=== PATIENT | male | born 1950 | race Hispanic/Latino ===

== ENCOUNTER → 2018-12-12 | Day surgery (SDC) | payer OTHER ==
[2018-12-09 13:25] LABS: BASOPHILS # (AUTO) 0.1 (0.0-0.1); BASOPHILS % 1.3 % (0.0-1.0); EOSINOPHILS # (AUTO) 0.2 (0.0-0.4); EOSINOPHILS % 3.4 % (0.0-6.0); HEMATOCRIT 44.4 % (38.2-49.6); HEMOGLOBIN 14.8 g/dL (14.0-18.0); LYMPHOCYTES # (AUTO) 2.7 (1.0-3.2); LYMPHOCYTES % 39.9 % (18.0-39.1); MEAN CORPUSCULAR HEMOGLOBIN 30.1 pg (28-32); MEAN CORPUSCULAR HGB CONC 33.3 g/dL (31-35); MEAN CORPUSCULAR VOLUME 90.2 fL (81-99); MONOCYTES # (AUTO) 0.6 (0.2-0.8); MONOCYTES % 8.7 % (4.4-11.3); NEUTROPHILS # (AUTO) 3.1 (2.1-6.9); NEUTROPHILS % 46.6 % (38.7-80.0); PLATELET COUNT 230 x10e3/uL (140-360); RED BLOOD COUNT 4.92 x10e6/uL (4.3-5.7); RED CELL DISTRIBUTION WIDTH 13.2 % (11.7-14.4)
--- NOTE | 2018-12-09 13:25 | Diagnostic Imaging Report ---
EXAMINATION: PA and lateral views of the chest. COMPARISON: None CLINICAL HISTORY: Preadmission protocol, carpal tunnel surgery DISCUSSION: Lines/tubes: None. Lungs: The lungs are well inflated and clear. No pneumonia or pulmonary edema. Pleura: No pleural effusion or pneumothorax. Heart and mediastinum: The cardiomediastinal silhouette is normal. Bones and soft tissues: No acute bony abnormalities. IMPRESSION: No acute cardiopulmonary abnormalities. Signed by: Dr. Brent Cornelius M.D. on 12/09/2018 1:21 PM
[2018-12-09 16:54] LABS: ANION GAP 17.5 mmol/L (8-16); BLOOD UREA NITROGEN 15 mg/dL (7-26); BUN/CREATININE RATIO 15 (6-25); CALCIUM 9.3 mg/dL (8.4-10.2); CARBON DIOXIDE 23 mmol/L (22-29); CHLORIDE 103 mmol/L (98-107); CREATININE, SERUM 1.01 mg/dL (0.72-1.25); EST GLOMERULAR FILTRATION RATE > 60 ML/MIN (60-); GLUCOSE 88 mg/dL (74-118); POTASSIUM 3.5 mmol/L (3.5-5.1); SODIUM 140 mmol/L (136-145)
[~2018-12-12] MED LIST: ASPIR 8181 MG PO; CLINDAMYCIN 600MG / 50ML 50 ML IV ONE; DEXAMETHASONE SOD PHOS INJ 4 MG/ML VIAL ONE; DIOVAN HCT 1601 EAC1; DIOVAN HCT 3201 EAC1 PO; FENTANYL CITRATE/PF 100MCG/2 ML INJ ONE; KETOROLAC TROMETHAMINE 30 MG/ML VIAL ONE; LEVOTHYROXINE50 MCG PO; LIDOCAINE HCL 2% LOCAL INJ 5 ML SDV VIAL INJ ONE; LORTAB 7.5-5001 EACH PO; MIDAZOLAM HCL 2 MG/2 ML VIAL ONE; ONDANSETRON HCL INJ 2MG/ML 2ML 2 MG/ML VIAL ONE; PLAVIX75 MG PO; PROPOFOL IV EMULSION 10 MG/ML 20 ML VIAL ONE; SEVOFLURANE INHAL SOLN 250 ML PEN BTL ONE; SIMVASTATIN20 MG PO; VYTORIN 10-401 EACH
--- OUTSIDE RECORDS SUMMARY | 2018-12-12 06:34 | XMS REPORT ---
Author Organization Unknown Address [address] [place] [address] Phone [phone] Care Team Providers Care Plant Culture Manager Name Role Phone Modesto Garcia Unavailable Unavailable Allergies Code Code System Name Reaction Severity Status Onset NKDA Medications Name Status Start Date Stop Date allopurinol 100 mg tablet Completed 02/08/2017 levothyroxine 50 mcg tablet Take 1 tablet every day by oral route for 90 days. Active Not available naproxen 500 mg tablet Completed 02/08/2017 simvastatin 20 mg tablet Take 1 tablet every day by oral route for 90 days. Active Not available simvastatin 40 mg tablet Completed 02/08/2017 valsartan 160 mg-hydrochlorothiazide 25 mg tablet Take 1 tablet every day by oral route for 90 days. Active Not available Zetia 10 mg tablet Completed 02/08/2017 Problems Name Status Onset Date Source Hypothyroidism Active 01/20/2016 History Pure Hypercholesterolemia Active 01/20/2016 History Hypertensive Heart Disease Active 01/20/2016 History Procedures Notes: 04/20/2016: S/P Cholecystecteomy; Surgery Date: 2002 S/P Lumbar Laminectomy; Surgery Date: 2011 Lab Results Date Name Specimen Result Interpretation Description Value Range Status Address 08/23/2017 CBC W/ Auto Diff Wbc 5.77 x10*3/L 4.23-9.07 x10*3/L Final [facility] Laboratory: [address] Rbc 4.81 10*12/L 4.63-6.08 10*12/L Final [facility] Laboratory: [address] Hemoglobin 14.70 g/dL 13.70-17.50 g/dL Final [facility] Laboratory: [address] Hematocrit 43.8 % 40.1-51.0 % Final [facility] Laboratory: [address] Mcv 91.1 fL 80.0-100.0 fL Final [facility] Laboratory: [address] Mch 30.6 pg 25.7-32.2 pg Final [facility] Laboratory: [address] [place] Mchc 33.6 g/dL 32.3-36.5 g/dL Final [facility]: [address] [place] RDW-SD 43.4 fL 35.1-43.9 fL Final [facility]: [address] [place] Platelet Count 209.0 k/uL 163.0-337.0 k/uL Final [facility] Laboratory: [address] [place] Mpv 10.8 fL 7.5-11.5 fL Final [facility]: [address] [place] Neut% 45.8 % 34.0-67.9 % Final [facility]: [address] [place] Lymph% 38.6 % 21.8-53.1 % Final [facility]: [address] [place] Mon% 10.1 % 5.3-12.2 % Final [facility]: [address] [place] Eos% 5.0 % 0.8-7.0 % Final [facility]: [address] [place] Baso% 0.5 % 0.2-1.2 % Final [facility]: [address] [place] Neut# 2.6 x10*3/L 1.8-5.4 x10*3/L Final [facility]: [address] [place] Lymph# 2.2 x10*3/L 1.3-3.6 x10*3/L Final [facility]: [address] [place] Mon# 0.6 x10*3/L 0.3-0.8 x10*3/L Final [facility]: [address] [place] Eos# 0.29 x10*3/L 0.04-0.54 x10*3/L Final [facility] [address] [facility] x10*3/L 0.01-0.08 x10*3/L Final [facility]: [address] 08/23/2017 Lipid Panel, Serum Low Hdl 32 mg/dL 40-60 mg/dL Final [facility] Laboratory: [address] Triglyceride 143 mg/dL 0-149 mg/dL Final [facility]: [address] VLDL Calc. 29 mg/dL Final [facility] Laboratory: [address] cholesterol/HDL Ratio 4.3 mg/dL Final [facility] Laboratory: [address] non-HDL Cholesterol Calc. 104 mg/dL 0-160 mg/dL Final [facility] Laboratory: [address] Cholesterol 136 mg/dL 0-199 mg/dL Final [facility]: [address] LDL Calc. 75 mg/dL 0-130 mg/dL Final [facility]: [address] 08/23/2017 T4, Total, Serum T4 Total 6.26 ug/dL 4.87-11.72 ug/dL Final [facility] Laboratory: [address] 08/23/2017 TSH, Serum or Plasma Tsh 2.218 uIU/mL 0.350-4.940 uIU/mL Final [facility] Laboratory: [address] 02/08/2017 CMP, Serum or Plasma Alt 22 U/L 0-55 U/L Final [facility] Laboratory: [address] Ast 26 U/L 5-34 U/L Final [facility]: [address] Bun 17 mg/dL 8-26 mg/dL Final [facility]: [address] Alk Phos 65 unit/L 40-150 unit/L Final [facility]: [address] Glucose 90 mg/dL 70-99 mg/dL Final [facility]: [address] Albumin 4.1 g/dL 3.5-5.0 g/dL Final [facility]: [address] Creatinine 1.03 mg/dL 0.72-1.25 mg/dL Final [facility] Laboratory: [address] [place] [address], [place] eGFR Non- >60 mL/min/1.73m2 >60 mL/min/1.73m2 Final [facility] Laboratory: [address] [place] [address], [place] Total Bilirubin 0.4 mg/dL 0.2-1.2 mg/dL Final [facility]: [address] [place] [address], [place] eGFR - >60 mL/min/1.73m2 >60 mL/min/1.73m2 Final [facility]: [address] [place] [address], [place] Sodium 139 mEq/L 137-144 mEq/L Final [facility]: [address] [place] [address], [place] Potassium 4.3 mEq/L 3.5-5.0 mEq/L Final [facility]: [address] [place] [address], [place] Chloride 102 mmol/L 101-110 mmol/L Final [facility]: [address] Total Protein 8.0 g/dL 6.4-8.3 g/dL Final [facility]: [address] Calcium 9.2 mg/dL 8.4-10.2 mg/dL Final [facility]: [address] [place] [address], [place] Co2 28.0 mmol/L 22.0-31.0 mmol/L Final [facility]: [address] Anion Gap 9 calc Final [facility]: [address] 02/08/2017 Lipid Panel, Serum Hdl 40 mg/dL 40-60 mg/dL Final [facility]: [address] High Triglyceride 193 mg/dL 0-149 mg/dL Final [facility]: [address] [place] [address], [place] VLDL Calc. 39 mg/dL Final [facility]: [address] cholesterol/HDL Ratio 4 mg/dL Final [facility] Laboratory: [address] [place] [address], [place] non-HDL Cholesterol Calc. 139 mg/dL 0-160 mg/dL Final [facility]: [address] Cholesterol 179 mg/dL 0-199 mg/dL Final [facility] Laboratory: [address] [place] [address] LDL Calc. 100 mg/dL 0-130 mg/dL Final [facility] Laboratory: [address] 02/08/2017 T4, Total, Serum T4 Total 4.93 ug/dL 4.87-11.72 ug/dL Final [facility] Laboratory: [address] [place] [address], [place] 02/08/2017 TSH, Serum or Plasma Tsh 1.943 uIU/mL 0.350-4.940 uIU/mL Final [facility] Laboratory: [address] [place] [address], [place] 02/08/2017 CBC W/ Auto Diff Normal White Blood Cell Count 7.0 thousand/uL 3.8-10.8 thousand/uL Final [facility] Lab: [address] [facility], [place] Normal Red Blood Cell Count 4.84 million/uL 4.20-5.80 million/uL Final [facility]: [address] [facility] [place] Normal Hemoglobin 14.8 g/dL 13.2-17.1 g/dL Final [facility]: [address] [facility] [place] Normal Hematocrit 43.2 % 38.5-50.0 % Final [facility] Lab: [address] [facility] [place] Normal Mcv 89.3 fL 80.0-100.0 fL Final [facility] Lab: [address], [place] Normal Mch 30.5 pg 27.0-33.0 pg Final [facility] Lab: [address] [facility] [place] Normal Mchc 34.1 g/dL 32.0-36.0 g/dL Final [facility] Lab: [address], [place] Normal Rdw 14.6 % 11.0-15.0 % Final [facility] Lab: [address], [place] Normal Platelet Count 236 thousand/uL 140-400 thousand/uL Final [facility] Lab: 70 [facility], [place] Normal Mpv 9.3 fL 7.5-12.5 fL Final [facility] Lab: [address], [place] Normal Absolute Neutrophils 3570 cells/uL 6449-3397 cells/uL Final [facility] Lab: [address], [place] Normal Absolute Lymphocytes 2520 cells/uL 850-3900 cells/uL Final [facility] Lab: [address], [place] Normal Absolute Monocytes 532 cells/uL 200-950 cells/uL Final [facility] Lab: [address], [place] Normal Absolute Eosinophils 315 cells/uL 15-500 cells/uL Final [facility] Lab: [address], [place] Normal Absolute Basophils 63 cells/uL 0-200 cells/uL Final [facility] Lab: [address], [place] Normal Neutrophils 51.0 % Final [facility] Lab: [address], [place] Normal Lymphocytes 36.0 % Final [facility] Lab: [address], [place] Normal Monocytes 7.6 % Final [facility] Lab: [address], [place] Normal Eosinophils 4.5 % Final [facility] Lab: [address], [place] Normal Basophils 0.9 % Final [facility] Lab: [address], [place] 02/08/2017 CBC W/ Auto Diff Normal White Blood Cell Count 7.0 thousand/uL 3.8-10.8 thousand/uL Final [facility]: [address] [facility] Red Blood Cell Count 4.84 million/uL 4.20-5.80 million/uL Final [facility]: [address] [facility] Hemoglobin 14.8 g/dL 13.2-17.1 g/dL Final [facility]: [address] [place] Normal Hematocrit 43.2 % 38.5-50.0 % Final [facility]: [address] [facility] Mcv 89.3 fL 80.0-100.0 fL Final [facility]: [address] [place] Normal Mch 30.5 pg 27.0-33.0 pg Final [facility] Laboratory: [address], [place] Normal Mchc 34.1 g/dL 32.0-36.0 g/dL Final [facility]: [address] [facility] Normal Rdw 14.6 % 11.0-15.0 % Final [facility]: [address] [facility] Normal Platelet Count 236 thousand/uL 140-400 thousand/uL Final [facility] Laboratory: [address] [place] Normal Mpv 9.3 fL 7.5-12.5 fL Final [facility] Laboratory: [address] [place] Normal Absolute Neutrophils 3570 cells/uL 5302-5043 cells/uL Final [facility]: [address] [place] Normal Absolute Lymphocytes 2520 cells/uL 850-3900 cells/uL Final [facility]: [address] [place] Normal Absolute Monocytes 532 cells/uL 200-950 cells/uL Final [facility] Laboratory: [address], [place] Normal Absolute Eosinophils 315 cells/uL 15-500 cells/uL Final [facility]: [address] [place] Normal Absolute Basophils 63 cells/uL 0-200 cells/uL Final [facility]: [address] [place] Normal Neutrophils 51.0 % Final [facility] Laboratory: [address], [place] Normal Lymphocytes 36.0 % Final [facility]: [address], [place] Normal Monocytes 7.6 % Final [facility]: [address] [place] Normal Eosinophils 4.5 % Final [facility] Laboratory: [address], [place] Normal Basophils 0.9 % Final [facility] Laboratory: [address], [place] Past Encounters 02/21/2018 Hypothyroidism; Pure Hypercholesterolemia; Hypertensive Heart Disease; Carpal Tunnel Syndrome Modesto Garcia MD: [id number] [facility], [address] [address], Ph. 08/23/2017 Hypertensive Heart Disease; Pure Hypercholesterolemia; Hypothyroidism; Influenza Vaccination Modesto Garcia MD: [id number] [facility], [facility] [address] [place] [address], Ph. 05/24/2017 Hypertensive Heart Disease; Pure Hypercholesterolemia; Hypothyroidism; Body Mass Index 25-29 - Overweight ALICE RamirezP: 47589 [facility], [facility] [address] [place] [address], Ph. 02/08/2017 Hypertensive Heart Disease; Pure Hypercholesterolemia; Hypothyroidism; Immunization Modesto Garcia MD: [id number] [facility], [address], [place] [address], Ph. 10/26/2016 Pure Hypercholesterolemia; Hypertensive Heart Disease; Hypothyroidism Modesto Garcia MD: [id number] [facility], [address], [place] [address], Ph. Social History Smoking Status Never Smoker Vaccine List Vaccine Type influenza, high dose seasonal 08/23/20170.5 mL influenza, injectable, quadrivalent 10/21/2015 pneumococcal conjugate PCV 13 02/08/20170.5 mL Plan of Care Reminders Provider Appointments None recorded. Lab None recorded. Referral None recorded. Procedures None recorded. Surgeries None recorded. Imaging None recorded. Vitals 02/21/2018 08:30AM Est Patient Height Weight BMI Blood Pressure 5 ft 7.5 in 189 lbs 29.2 kg/m2 131/72 mm[Hg] 08/23/2017 08:30AM Est Patient Height Weight BMI Blood Pressure 5 ft 7.5 in 187 lbs 28.9 kg/m2 124/81 mm[Hg] 05/24/2017 08:15AM Est Patient Height Weight BMI Blood Pressure 5 ft 7.5 in 182 lbs 28.1 kg/m2 123/77 mm[Hg] 02/08/2017 09:15AM Est Patient Height Weight BMI Blood Pressure 5 ft 7.5 in 184.4 lbs 28.5 kg/m2 129/77 mm[Hg] 10/26/2016 08:30AM Est Patient Height 5 ft 7.5 in 04/20/2016 Height Weight BMI Blood Pressure 5 ft 7.5 in 172.8 lbs 26.66 kg/m2 133/75 mm[Hg] 01/20/2016 Height Weight BMI Blood Pressure 5 ft 7.5 in 172.6 lbs 26.63 kg/m2 118/70 mm[Hg] 10/21/2015 Height Weight BMI Blood Pressure 5 ft 7.5 in 182.6 lbs 28.17 kg/m2 134/72 mm[Hg] 07/22/2015 Height Weight BMI Blood Pressure 5 ft 7.5 in 182 lbs 28.08 kg/m2 118/72 mm[Hg] 05/08/2015 Height Weight BMI Blood Pressure 5 ft 7.5 in 190.4 lbs 29.38 kg/m2 124/68 mm[Hg] 04/15/2015 Height Weight BMI Blood Pressure 5 ft 7.5 in 187.8 lbs 28.98 kg/m2 118/70 mm[Hg] 01/14/2015 Height Weight BMI Blood Pressure 5 ft 7.5 in 188 lbs 29.01 kg/m2 120/80 mm[Hg] 10/15/2014 Height Weight BMI Blood Pressure 5 ft 7.5 in 190 lbs 29.32 kg/m2 130/80 mm[Hg] 03/19/2014 Height Weight 5 ft 7.5 in 188.4 lbs 11/20/2013 Height Weight 5 ft 7.5 in 188.4 lbs 08/21/2013 Height Weight 5 ft 7.5 in 184.6 lbs 05/22/2013 Height Weight 5 ft 7.5 in 187.4 lbs 02/13/2013 Height Weight 5 ft 7.5 in 194.7 lbs 11/14/2012 Height Weight 5 ft 7.5 in 192.8 lbs 10/17/2012 Height Weight 5 ft 7.5 in 191.4 lbs 08/15/2012 Height Weight 5 ft 7.5 in 190.4 lbs 05/16/2012 Height Weight 5 ft 7.5 in 191.2 lbs 02/17/2012 Height Weight 5 ft 7.5 in 197 lbs 02/15/2012 Height Weight 5 ft 7.5 in 197 lbs 11/11/2011 Height Weight 5 ft 7.5 in 193.4 lbs 09/14/2011 Height Weight 5 ft 7.5 in 192.8 lbs 06/08/2011 Height Weight 5 ft 7.5 in 195.4 lbs 06/01/2011 Height Weight 5 ft 7.5 in 196.6 lbs 10/27/2010 Height Weight 5 ft 7.5 in 191.8 lbs 06/19/2010 Weight 194.4 lbs 06/02/2010 Weight 194.6 lbs 01/20/2010 Weight 188 lbs 01/13/2010 Weight 196 lbs 10/07/2009 Weight 196 lbs 07/08/2009 Weight 200 lbs 04/08/2009 Height Weight 5 ft 7.5 in 190 lbs 01/07/2009 Weight 183 lbs 12/18/2008 Weight 202 lbs 07/02/2008 Weight 191.1 lbs 01/02/2008 Weight 187.8 lbs 12/26/2007 Height Weight 5 ft 7.2 in 189.2 lbs
--- OUTSIDE RECORDS SUMMARY | 2018-12-12 06:34 | XMS REPORT ---
Author [facility] Address Unknown Phone Unavailable Care Team Providers Care Set And Exhibit Designer Name Role Phone FATIMAH PERKINS Unavailable Unavailable Problems This patient has no known problems. Allergies, Adverse Reactions, Alerts This patient has no known allergies or adverse reactions. Medications This patient has no known medications. Results Test Description Test Time Test Comments Text Results Atomic Results Result Comments CHEST 2 VIEWS 2018-12-09 13:20:00 [place] [address] Patient Name: PRINCE DE LA O MR #: [id number] : 1950 Age/Sex: 68/M Req #: [id number] Adm Physician: Ordered by: FATIMAH PERKINS MD Report #: [id number] Location: OR Room/Bed: Procedure: [id number] DX/CHEST 2 VIEWS Exam Date: 12/09/18 Exam Time: 1230 REPORT STATUS: Signed EXAMINATION: PA and lateral views of the chest. COMPAR TIMI: None CLINICAL HISTORY: Preadmission protocol, carpal tunnel surgery DISCUSSION: Lines/tubes: None. Lungs: The lungs are well inflated and clear. No pneumonia or pulmonary edema. Pleura: No pleural effusion or pneumothorax. Heart and mediastinum: The cardiomediastinal silhouette is normal. Bones and soft tissues: No acute bony abnormalities. IMPRESSION: No acute cardiopulmonary abnormalities. Signed by: Dr. Pepper Man M.D. on 12/09/2018 1:21 PM Dictated By: PEPPER MAN MD [id number] Transcribed By: LOY on 12/09/18 132 COPY TO: FATIMAH PERKINS MD
--- NOTE | 2018-12-12 07:20 | NUR ---
SPIRITUAL CARE - Pre-Surgery Assessment: Pt in bed. Pt's at bedside. Pt reported supportive attention from family and friends. Intervention: I provided pastoral presence, hospitality, and sympathetic listening. I acquainted pt with availability of infrastructure architect while hospitalized. Outcome: Pt expressed appreciation for visit. No need for follow up indicated at this time. MICHAEL Bondslain Spiritual Care Department O: [phone] Pager: [phone] ([phone] number calling from)
[2018-12-12 10:25] VITALS: BP 128/73
--- NOTE | 2018-12-12 10:26 | Operative Report ---
DATE OF PROCEDURE: December 12, 2018 DENTAL EQUIPMENT INSTALLER AND SERVICER: Dario Balbuena PA-C The patient was brought to the operating room for induction of anesthesia. Throughout this case, my PA's assistance was necessary for retraction of soft tissue and positioning of the extremity. This allows for efficient and technically successful execution of the operation and is considered medically necessary. PREOPERATIVE DIAGNOSIS: Carpal tunnel syndrome, left wrist. POSTOPERATIVE DIAGNOSIS: Carpal tunnel syndrome, left wrist. PROCEDURE: Left endoscopic carpal tunnel release. INDICATIONS: The patient is a 68-year-old gentleman with clinic signs and symptoms consistent with severe left carpal tunnel syndrome. He has failed conservative management and would like to proceed with surgical decompression. The risks and benefits of the surgery have been discussed. He states he understands and wishes to proceed. PROCEDURE: The patient was brought to the operating room. He was placed under general anesthetic. Prophylactic antibiotics were given in the holding area. The upper extremity was prepped and draped in a sterile manner. A well-padded tourniquet was placed on the upper arm and inflated to 250 mmHg. An operative time out was performed. A 1-cm incision was made over the flexion crease of the wrist. The palmaris longus was retracted to the radial side of the wound. The flexor retinaculum was elevated and incised with a pair of sharp tenotomy scissors. An elevator was used to tease the tenosynovium off the undersurface of the transverse carpal ligament. Dilators were placed, and the hook of the hamate was palpated. The Micro-Aire endoscope was then placed into the carpal tunnel. The undersurface of the ligament was cleanly visualized without evidence of soft tissue interposition. The knife was deployed, and the ligament was cut from distal to proximal. Full-thickness cut was noted. The proximal retinaculum was then incised under direct visualization using a pair of blunt Metzenbaum scissors. The wound was irrigated and closed with 2 interrupted 4-0 nylon stitches. A sterile bandage was applied, and the patient was extubated. The patient was transferred to the recovery room in stable condition. Blood loss was less than 5 mL, and at the end of the procedure needle and sponge counts were correct. Job#: [id number] VICTORIA
== END | disposition home or self-care (01) ==
LOC: OR 06:15
PROVIDERS: ATTEND Specialist
DX: G56.02 Carpal tunnel syndrome, left upper limb (principal); I10 Essential (primary) hypertension; E03.9 Hypothyroidism, unspecified; R00.1 Bradycardia, unspecified; Z01.810 Encounter for preprocedural cardiovascular examination; Z01.812 Encounter for preprocedural laboratory examination; Z01.818 Encounter for other preprocedural examination; Z88.0 Allergy status to penicillin; Z79.02 Long term (current) use of antithrombotics/antiplatelets; Z79.82 Long term (current) use of aspirin
CPT/HCPCS: 29848; 36415; 71046; 80048; 85025; 93005; J1100; J1885; J2001; J2250; J2405; J2704